=== PATIENT | female | born 2000 | race Caucasian/White ===

== ENCOUNTER 2023-08-15 21:22 | Inpatient (IN) | payer OTHER, SELFPAY ==
[2023-08-15] VITALS (23 sets, daily range): BP systolic 105–139; BP diastolic 55–81; PULSE 66–114; RESP 14; TEMP 36.6–36.9; O2SAT 93–99; BMI 25.7
[2023-08-15] MEDS: Lactated Ringers 1,000 ML 999 ML IV (21:20)
[2023-08-15 21:50] LABS: Absolute Lymphocyte Count 0.78 X10^3/uL (0.83-4.51); Absolute Neutrophil Count 15.6 X10^3/uL (2.0-7.7); Basophil# 0.03 X10^3/uL; Basophil% 0.2 % (0-1); Eosinophil# 0.12 X10^3/uL; Eosinophils% 0.7 % (0-5); Hemoglobin 12.4 g/dL (12.0-15.0); Lymphocyte # 0.78 X10^3/ul (0.83-4.51); Lymphocyte % 4.4 % (19-41); Mean Corp Hgb Conc 34.4 g/dL (32-36); Mean Corpuscular Hgb 32.7 pg (27.0-32.0); Mean Platelet Vol. 10.6 fl (6.2-12.0); Monocyte# 1.08 X10^3/uL; Monocyte% 6.1 % (0-10); NRBC Flagged by Analyzer 0 % (0-5); Neutrophil # 15.59 X10^3/uL (2.7-7.7); Neutrophil % 87.9 % (47-70); POSITIVE MORPHOLOGY YES; Platelet Count 247 K/mm3 (150-450); RBC Distribution Width CV 13.6 % (11.6-14.6); RBC Distribution Width SD 47.1 fl (35.1-43.9); Red Blood Count 3.79 M/mm3 (4.2-5.4); White Blood Count 17.7 K/mm3 (4.4-11.0)
[2023-08-15 22:11] LABS: Differential Indicated SCAN CRITERIA MET
[2023-08-15] MEDS: Penicillin G Pot 5,000,000 UNITS in 0.9% Normal Saline (100mL MB+) 100 ML 150 UNITS IV (22:15)
[2023-08-15] MEDS: Lactated Ringers 1,000 ML 50 ML IV (22:21)
[2023-08-15] MEDS: fentaNYL-bupivacaine (epidural) 100 ML BAG EPIDURAL (22:26)
[2023-08-15 22:48] LABS: HIV - WCH Non-Reactive (Nonreactive); Rubella IgG Non-Reactive (Nonreactive); Syphilis Antibodies Non-reactive
[2023-08-15 23:02] LABS: Hepatitis B Surface Antigen Non-Reactive (Nonreactive); Hepatitis C Antibody Non-Reactive (Nonreactive)
[2023-08-16] VITALS (45 sets, daily range): BP systolic 92–123; BP diastolic 49–64; PULSE 30–117; RESP 16; TEMP 36.6–37.1; O2SAT 79–99
[2023-08-16] MEDS: LACTATED RINGERS 500 ML 999 ML IV (00:09)
[2023-08-16] MEDS: Amnioinfusion- 0.9% NS 1,000 ML IV.SOLN. 1 ML INTRA-UTER (00:22)
--- NOTE | 2023-08-16 00:37 | PCM.HP.OB ---
HPI - General General Date of Admission: 08/15/23 HPI Narrative NILSON GOODWIN, is a 22 F @ 39w3 who presents IAL AOD at 8 cm at home birthing center, requesting an epidural. she has been rupture dsince 5 am, no ultrasound other than at 7 weeks of confirming a due date of 08/19/23. 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 [facility] Medical History no medical history Home Medications ?Medication ?Instructions ?Recorded ?Last Taken ?Type [id number] PO 08/15/23 Unknown History Allergy/AdvReac Type Severity Reaction Status Date / Time No Known Allergies Allergy Verified 08/15/23 21:25 Family History no significant family his Surgical History no surgical history Social History Smoking Status: Never smoker History Elective abortions Hx Para 0 Spontaneous abortions Hx # Term Pregnancies Ectopic pregnancies Hx # Pregnancies Multiple births # of living children NST FHR Rate Baby A Baseline: 140 Variability:: Moderate Accelerations:: 15 x 15 Decelerations:: None NST Reactive:: Yes FHR Category:: Category I Uterine Activity:: q3-5 ROS Constitutional Constitutional: Reports systems reviewed and no addt'l complaints, except as documented ENT HEENT: Reports systems reviewed and no addt'l complaints, except as documented Cardiovascular Cardiovascular: Reports systems reviewed and no addt'l complaints, except as documented Respiratory/Chest Respiratory/Chest: Reports systems reviewed and no addt'l complaints, except as documented Gastrointestinal Gastrointestinal: Reports systems reviewed and no addt'l complaints, except as documented and nausea; Denies abdominal pain Genitourinary Genitourinary: Reports systems reviewed and no addt'l complaints, except as documented, contractions Details: present and frequency (regular ) and movement Details: present Musculoskeletal Musculoskeletal: Reports systems reviewed and no addt'l complaints, except as documented Integumentary Integumentary: Reports as per HPI Neurologic Neurologic: Reports systems reviewed and no addt'l complaints, except as documented Endocrine Endocrinology: Reports systems reviewed and no addt'l complaints, except as documented Vital Signs Vital Signs Vital Signs: 08/15/23 21:16 08/15/23 21:16 08/15/23 21:17 Temperature Temperature Source Pulse Rate 101 H Respiratory Rate Blood Pressure 139/81 H BP Systolic 139 BP Diastolic 81 Pulse Ox 97 08/15/23 21:17 08/15/23 22:16 08/15/23 22:16 Temperature Temperature Source Pulse Rate 114 H 111 H Respiratory Rate Blood Pressure BP Systolic BP Diastolic Pulse Ox 99 08/15/23 22:17 08/15/23 22:17 08/15/23 22:21 Temperature Temperature Source Pulse Rate 105 H 96 Respiratory Rate Blood Pressure 134/76 H BP Systolic 134 BP Diastolic 76 Pulse Ox 08/15/23 22:21 08/15/23 22:23 08/15/23 22:23 Temperature Temperature Source Pulse Rate 99 Respiratory Rate Blood Pressure 130/60 H BP Systolic 130 BP Diastolic 60 Pulse Ox 98 08/15/23 22:26 08/15/23 22:26 08/15/23 22:27 Temperature Temperature Source Pulse Rate 101 H Respiratory Rate Blood Pressure 118/59 L BP Systolic 118 BP Diastolic 59 Pulse Ox 98 08/15/23 22:27 08/15/23 22:31 08/15/23 22:31 Temperature Temperature Source Pulse Rate 83 95 Respiratory Rate Blood Pressure BP Systolic BP Diastolic Pulse Ox 97 08/15/23 22:33 08/15/23 22:33 08/15/23 22:36 Temperature Temperature Source Pulse Rate 89 75 Respiratory Rate Blood Pressure 112/63 BP Systolic 112 BP Diastolic 63 Pulse Ox 08/15/23 22:36 08/15/23 22:38 08/15/23 22:38 Temperature Temperature Source Pulse Rate 103 H Respiratory Rate Blood Pressure 117/64 BP Systolic 117 BP Diastolic 64 Pulse Ox 97 08/15/23 22:41 08/15/23 22:41 08/15/23 22:43 Temperature Temperature Source Pulse Rate 108 H Respiratory Rate Blood Pressure 112/65 BP Systolic 112 BP Diastolic 65 Pulse Ox 99 08/15/23 22:43 08/15/23 22:46 08/15/23 22:46 Temperature Temperature Source Pulse Rate 75 84 Respiratory Rate Blood Pressure BP Systolic BP Diastolic Pulse Ox 96 08/15/23 22:48 08/15/23 22:48 08/15/23 22:51 Temperature Temperature Source Pulse Rate 85 76 Respiratory Rate Blood Pressure 110/71 BP Systolic 110 BP Diastolic 71 Pulse Ox 08/15/23 22:51 08/15/23 22:53 08/15/23 22:53 Temperature Temperature Source Pulse Rate 73 Respiratory Rate Blood Pressure 105/58 L BP Systolic 105 BP Diastolic 58 Pulse Ox 93 08/15/23 22:56 08/15/23 22:56 08/15/23 22:57 Temperature Temperature Source Pulse Rate 71 Respiratory Rate Blood Pressure 109/60 BP Systolic 109 BP Diastolic 60 Pulse Ox 97 08/15/23 22:57 08/15/23 23:00 08/15/23 23:00 Temperature 97.9 F Temperature Source Temporal Pulse Rate 72 Respiratory Rate Blood Pressure BP Systolic BP Diastolic Pulse Ox 08/15/23 23:29 08/15/23 23:29 08/15/23 23:29 Temperature Temperature Source Temporal Pulse Rate 66 Respiratory Rate Blood Pressure 108/55 L BP Systolic 108 BP Diastolic 55 Pulse Ox 08/15/23 23:29 08/15/23 23:29 08/15/23 23:56 Temperature 98.4 F Temperature Source Pulse Rate 112 H Respiratory Rate 14 Blood Pressure BP Systolic BP Diastolic Pulse Ox 08/15/23 23:56 08/16/23 00:01 08/16/23 00:01 Temperature Temperature Source Pulse Rate 55 L Respiratory Rate Blood Pressure BP Systolic BP Diastolic Pulse Ox 95 97 08/16/23 00:06 08/16/23 00:06 08/16/23 00:11 Temperature Temperature Source Pulse Rate 84 82 Respiratory Rate Blood Pressure BP Systolic BP Diastolic Pulse Ox 98 08/16/23 00:11 08/16/23 00:16 08/16/23 00:16 Temperature Temperature Source Pulse Rate 90 Respiratory Rate Blood Pressure BP Systolic BP Diastolic Pulse Ox 99 99 Weight Weight: 145 lb Body Mass Index (BMI) 25.7 Physical Exam Const alert, oriented x3 and healthy appearing Constitutional Narrative: uncomfortable with contractions HEENT normocephalic and moist oral mucous membranes Head and Scalp: atraumatic Neck full ROM, no lymphadenopathy, supple and thyroid normal General: trachea midline Thyroid: thyroid normal Lymph Lymphatic: no lymphadenopathy noted Chest inspection of chest normal Resp normal respiratory effort Cardio regular rate GI normal to inspection, nondistended, normoactive bowel sounds, soft to palpation and non-tender Inspection: gravid external exam normal Bimanual Exam - Vag & Uterus: uterus non-tender Manual OB Exam: estimated gestational size appropriate, presentation cephalic, dilated, effaced and station Extremity normal to inspection General Extremity: Negative for edema Skin no rashes or lesions noted Neuro deep tendon reflexes 2+ bilaterally Motor Exam: strength 5/5 throughout and clonus absent Psych mental status grossly normal Labs Labs Labs: Antibody Screen NEGATIVE Hct 36.0 % (37-47) L Hgb 12.4 g/dL (12.0-15.0) Syphilis Total Ab Non-reactive Rubella IgG Antibody Non-Reactive (Nonreactive) Hep Bs Antigen Non-Reactive (Nonreactive) Hepatitis C Antibody Non-Reactive (Nonreactive) HIV 1&2 Antibody Non-Reactive (Nonreactive) Group B Strep DNA Pending Assessment & Plan (1) Active labor at term: PLAN: Plan admits IAL, labs drawn, will get epidural and give pcn for unknown GBS and prolonged ruptured membranes.
--- NOTE | 2023-08-16 00:41 | EX.PCM.OBRPT ---
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 39 SM girl Savilla (3) Retained placenta parts or membranes: COMMENT: bedside currettage performed for retained membranes, ancef given Vaginal Delivery Operative Information Date of Procedure: 08/16/23 Pre-Operative Diagnosis: see a/p diagnoses Post-Operative Diagnosis: same Surgery / Procedure Performed: Spontaneous Vaginal Delivery Type of Anesthesia: Epidural Special Medications: none Estimated Blood Loss: 300 Fluids Replaced: crystalloid Findings Description of Procedure: Patient began pushing and delivered the head in the ANNAMARIE presentation. The head was delivered atraumatically and a loose nuchal cord ?1 was identified and the infant delivered through without complication. The anterior and posterior shoulders delivered without complication followed by the rest of the infant and the was placed on the maternal abdomen. Delayed cord clamping was employed for approximately 60 seconds. Cord was clamped and cut and gentle traction was applied to the cord and the placenta had trouble being delivered spontaneously due to a small cord, and therefore was delivered manually. part of the membranes were felt to be retained and a manual exam digitlaly and with a bedside currettage were performed ot remove all remaining POC. betadine vaignal prep was done prior to this and ancef given. The perineum and vagina were inspected and noted to have no laceration. EBL was 300. Patient and tolerated delivery well. Amniotic Fluid Description: Clear Placental Delivery Description: Spontaneous Placenta Disposition: [facility] Cord Vessel Description: 3 Vessels Cord Entanglement: Around neck x 1, loose Delayed Cord Clamping: Yes Post Vaginal Delivery Medications Given After Delivery: - (Pitocin) Episiotomy Description: None Complication Complications: None Multi Select Codes Urinary/Genital Urinary/Genital CPT Codes: 61537 Vaginal Delivery+ PP Care([facility])
--- NOTE | 2023-08-16 00:43 | DCINST_ITS ---
Discharge Instructions Diet Discharge Diet: No restrictions Activity Discharge Activity: Return to Normal Activity, May Not Drive (while taking narcotic pain medications.) and May Shower May resume sexual activity in: 4-6 weeks Dressing / Incision Call your doctor if your incision/area has: Continuous Slow Oozing, Sudden Increased Bleeding, Increased Pain/ Swelling, Increased Redness and Foul Smelling Discharge Follow Up Care Please Follow Up With: Alley Infante MD When: Call [phone] to make an appointment with your doctor in 6 weeks. If you had elevated blood pressure or 4th degree laceration, you will need to be seen in 2 weeks. Test Results: Test results from this visit will be discussed in further detail at your follow- up appointment, if applicable. Discharge Plan Admission Admit Date/Time: 08/15/23 21:22 Attending Provider: Alley Infante Primary Care Provider: Care Physician,Zulma Primary Discharge Orders/Prescriptions Prescriptions: No Action [id number] [ Multi-DHA(with vit K)] PO Referrals / Follow Up: Care Physician,No Primary [Primary Care Provider] - Disposition Disposition (needs filled in before D/C Order can be placed): Home, Self Care
[2023-08-16 00:44] LABS: Group B Strep DNA By PCR Negative (Negative); Internal Control PASS; Probe Check PASS; Specimen Processing Control PASS
[2023-08-16] MEDS: Oxytocin 15 Units/NS 250ml 15 UNITS/250 ML IV.SOLN 334 UNITS IV (00:58)
[2023-08-16] MEDS: Cefazolin 2 GM in 0.9% Normal Saline (100mL Bag) 100 ML IV (01:19)
[2023-08-16] MEDS: Oxytocin 15 Units/NS 250ml 15 UNITS/250 ML IV.SOLN 83 UNITS IV (01:40)
[2023-08-16 01:49] LABS: Bacteria 0 SEEN /hpf (None Seen); Mucous, Urine 0 SEEN /hpf (<or=2+); Squamous Epithelial Cells - UA 0 SEEN /hpf (5-10); White Blood Cells 0 SEEN /hpf (0-5)
[2023-08-16 01:54] LABS: Glucose, Dipstick 100 mg/dl (Normal); Leukocyte Esterase-Dipstick Negative /ul (Negative); Nitrite-Dipstick Negative (Negative); Occult Blood-Urine 25 /ul (Negative); Protein-Dipstick 30 mg/dl (Negative); Specific Gravity, Urine 1.015 (1.002-1.030); Urine Bilirubin Dipstick Negative (Negative); Urine Urobilinogen Normal (Normal)
[2023-08-16 01:55] LABS: Color, Urine Yellow (Yellow); Ketone-Dipstick 150 mg/dl (Negative); Urine Clarity Clear (Clear)
[2023-08-16 02:05] LABS: Amphetamine Urine VISTA NEGATIVE (<1000 ng/mL); Barbiturate Urine VISTA NEGATIVE (< 200 ng/mL); Benzodiazepine Urine VISTA NEGATIVE (< 200 ng/mL); Cocaine Urine VISTA NEGATIVE (< 300 ng/mL); Ecstacy Urine VISTA NEGATIVE (< 500 ng/mL); Methadone Urine VISTA NEGATIVE (< 300 ng/mL); PCP Urine VISTA NEGATIVE (< 25 ng/mL); THC Urine VISTA NEGATIVE (< 50 ng/mL); Vista UDS pH Range 6
[2023-08-16 02:06] LABS: Red Blood Cells-Urine 0-5 SEEN /hpf (0-5)
[2023-08-17 01:17] VITALS: PULSE 112; O2SAT 97
[2023-08-17 01:18] VITALS: BP 113/54; PULSE 108
[2023-08-17 01:20] VITALS: BP 113/54; PULSE 104; RESP 14; TEMP 36.7; O2SAT 97
[2023-08-17 08:12] VITALS: BP 122/60; PULSE 84; RESP 156; TEMP 36.6; O2SAT 97
[2023-08-17 08:14] VITALS: BP 122/60; PULSE 78; PULSE 80; O2SAT 97
--- NOTE | 2023-08-17 09:06 | PCM.PN.OB ---
Subjective Subjective Patient doing well without complaints. Tolerating PO. Ambulating and voiding without difficulty. Feeding well. Denies chest pain, shortness of breath, calf pain/swelling, fevers, chills, lightheadedness. Objective Data Objective Data Vital Signs: Vital Signs Temp Pulse Resp BP Pulse Ox O2 Del Method 97.8 F 80 156 H 122/60 H 97 Room Air 08/17/23 08:12 08/17/23 08:14 08/17/23 08:12 08/17/23 08:14 08/17/23 08:14 08/17/23 08:12 Oxygen Delivery Method Room Air Weight: 145 lb Body Mass Index (BMI) 25.7 Intake & Output: Intake and Output for Last 24 Hours 08/15/23 08/16/23 08/17/23 23:59 23:59 23:59 Intake Total 1008.33 / 1008.33 1698.34 / 1698.34 Output Total 1999 Balance 1008.33 / 1008.33 -301.66 / -301.66 Lab / Micro Data 08/15/23 21:20 Physical Exam Const alert and oriented x3 Neck full ROM Lymph Lymphatic: no lymphadenopathy noted Chest inspection of chest normal Nipple/Areola: nipples/areola normal Resp normal respiratory effort and normal air movement Cardio regular rate and regular rhythm GI normal to inspection, nondistended, normoactive bowel sounds Uterus Palpation: uterus fundus firm Extremity normal to inspection, full ROM and no calf tenderness Skin no rashes or lesions noted Psych mental status grossly normal Assessment & Plan (1) Vaginal delivery: COMMENT: 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 39 SM girl Savmarco antonio (2) Retained placenta parts or membranes: COMMENT: bedside currettage performed for retained membranes, ancef given PLAN: Plan s/p PPD # 1 1. routine post delivery care 2. breast feeding- support given 3. rh positive 4. rubella immune 5. d/c home today
[2023-08-17 11:30] VITALS: BP 130/58; PULSE 92; RESP 16; TEMP 36.7; O2SAT 97
== END 2023-08-17 12:30 | disposition home or self-care (01) | DRG 807 ==
PROVIDERS: Admitting Provider Obstetrics & Gynecology; Visit Provider Obstetrics & Gynecology
DX: O73.1 Retained portions of placenta and membranes, without hemorrhage (principal); Z37.0 Single live birth; O69.81X0 Labor and delivery complicated by cord around neck, without compression, not applicable or unspecified; Z3A.39 39 weeks gestation of pregnancy
CPT/HCPCS: 59025; 59050; 80307; 81001; 85025; 86703; 86762; 86780; 86803; 86850; 86900; 86901; 87081; 87340; 87653; 99221; J7030; J7120; G0378